=== PATIENT | male | born 2000 | race African-American/Black ===

== ENCOUNTER 2020-03-03 14:21 | Emergency (ER) | payer MEDICAID ==
[~2020-03-03] VITALS: Ht 180.3 cm; Wt 109.5 kg
[2020-03-03] MEDS ORDERED: PROPARACAINE OPHTH 0.5%, 15ML RIGHTEYE STA (14:41)
[2020-03-03] MEDS ORDERED: PROPARACAINE OPHTH 0.5%, 15ML ONE (14:41)
[2020-03-03 15:01] VITALS: BP 132/75
== END 2020-03-03 15:04 | disposition home or self-care (01) ==
LOC: ED 14:30
DX: H16.291 Other keratoconjunctivitis, right eye (principal)
CPT/HCPCS: 99283

== ENCOUNTER 2020-03-07 10:06 | Emergency (ER) | payer MEDICAID ==
[~2020-03-07] VITALS: Ht 180.3 cm; Wt 106.9 kg
[2020-03-07 10:25] VITALS: BP 144/91
[2020-03-07] MEDS ORDERED: PROPARACAINE OPHTH 0.5%, 15ML EACHEYE ONE (10:30)
[2020-03-07] MEDS ORDERED: FLUORESCEIN OPHTHALMIC 1 MG STRIP EACHEYE ONE (10:30)
[2020-03-07] MEDS ORDERED: FLUORESCEIN OPHTHALMIC 1 MG STRIP ONE (10:31)
[2020-03-07] MEDS ORDERED: PROPARACAINE OPHTH 0.5%, 15ML ONE (10:31)
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
== END 2020-03-07 11:50 | disposition home or self-care (01) ==
LOC: ED 11:49
DX: B30.9 Viral conjunctivitis, unspecified (principal); H57.12 Ocular pain, left eye; H53.149 Visual discomfort, unspecified; F17.210 Nicotine dependence, cigarettes, uncomplicated
CPT/HCPCS: 99283; 99406